=== PATIENT | female | born 1995 | race Caucasian/White ===

== ENCOUNTER 2020-11-04 08:51 | Outpatient (REF) | payer MEDICAID, SELFPAY ==
[2020-11-04 14:10] LABS: Abs Immature Grans 0.02 10^3/uL (0.0-0.06); Absolute Basophil Count 0.02 10^3/uL (0.0-0.2); Absolute Eosinophil Count 0.11 10^3/uL (0.0-0.7); Absolute Lymphocyte Count 1.05 10^3/uL (1.2-3.4); Absolute Monocyte Count 0.39 10^3/uL (0.1-0.8); Absolute Neutrophil Count 3.05 10^3/uL (1.2-6.7); Basophils % 0.4; Eosinophils % 2.4; HCT 42.1 % (36.0-46.0); Immature Grans % 0.4; Lymphocytes % 22.6; MCH 31.1 pg (27.0-33.0); MCHC 33.3 % (32.0-36.0); MCV 93.6 fL (80-95); MPV 10.6 fL (8.0-11.0); Monocytes % 8.4; Neutrophils % 65.8; Nucleated RBC 0 %; Platelet Count 142 10^3/uL (130-400); RDW 12.3 % (11.7-14.6); RDW-SD 42.3 fL; WBC 4.64 10^3/uL (4.4-10.8)
[2020-11-04 14:40] LABS: AST 13 U/L (15-37); Albumin 4.9 g/dL (3.4-5.0); Anion Gap 13.2 mmol/L (3-11); BUN 12 mg/dL (7-18); Bilirubin, Total 0.7 mg/dL (0.2-1.0); CO2 25.8 mmol/L (21.0-32.0); CREATININE 0.8 mg/dL (0.55-1.02); Calcium 9.6 mg/dL (8.5-10.1); Chloride 105 mmol/L (98-107); Glucose 105 mg/dL (74-106); Potassium 3.6 mmol/L (3.5-5.1); Sodium 144 mmol/L (136-145); TSH (W/Ref FT4) 0.69 uIU/mL (0.36-3.74); Total Protein 7.6 g/dL (6.4-8.2)
[2020-11-04 14:51] LABS: ALT 23 U/L (14-59); Alkaline Phosphatase 71 U/L (46-116)
== END 2020-11-04 08:52 | disposition home or self-care (01) ==
LOC: NCHCN 08:51
PROVIDERS: PCP Nurse Practitioner Family; Visit Provider Nurse Practitioner Community Health
DX: R63.6 Underweight (principal)
CPT/HCPCS: 80053; 84443; 85025

== ENCOUNTER 2020-11-23 18:30 | Outpatient (REF) | payer MEDICAID, SELFPAY ==
[2020-11-23 22:04] LABS: Ferritin 26 ng/mL (8-252); Vitamin B12 403 pg/mL (193-986)
== END 2020-11-23 18:31 | disposition home or self-care (01) ==
LOC: NCHCN 18:30
PROVIDERS: PCP Nurse Practitioner Family; Visit Provider Nurse Practitioner Community Health
DX: G62.9 Polyneuropathy, unspecified (principal)
CPT/HCPCS: 82607; 82728

== ENCOUNTER 2020-12-09 13:42 | Outpatient (REF) | payer MEDICAID, SELFPAY ==
[2020-12-10 01:29] LABS: Vitamin D 25 Total 24.9 ng/mL (30-100)
== END 2020-12-09 13:43 | disposition home or self-care (01) ==
LOC: NCHCN 13:42
PROVIDERS: PCP Nurse Practitioner Family; Visit Provider Nurse Practitioner Community Health
DX: G60.9 Hereditary and idiopathic neuropathy, unspecified (principal)
CPT/HCPCS: 82306

== ENCOUNTER 2021-04-13 10:33 | Outpatient (REF) | payer MEDICAID, SELFPAY ==
[2021-04-14 14:25] LABS: COVID-19 RT-PCR UVMMC Result Negative (Negative)
== END 2021-04-13 10:34 | disposition home or self-care (01) ==
LOC: NCHCN 10:33
PROVIDERS: PCP Nurse Practitioner Family; Visit Provider Nurse Practitioner Family
DX: Z20.822 Contact with and (suspected) exposure to COVID-19 (principal); J31.0 Chronic rhinitis
CPT/HCPCS: U0003

== ENCOUNTER 2023-01-06 12:32 | Outpatient (REF) | payer MEDICAID, SELFPAY ==
[2023-01-06 21:23] LABS: HCT 40.6 % (36.0-46.0); HGB 13.8 g/dL (11.2-15.7); MCH 31.8 pg (27.0-33.0); MCV 94 fL (80-95); MPV 10.6 fL (8.0-11.0); Platelet Count 182 10^3/uL (130-400); RBC 4.34 10^6/uL (3.93-5.22); RDW 12.5 % (11.7-14.6); RDW-SD 43.6 fL; WBC 7.13 10^3/uL (4.4-10.8)
[2023-01-06 21:46] LABS: Hemoglobin A1C 5.2 % (<5.7)
[2023-01-06 21:54] LABS: ALT 26 U/L (14-59); AST 16 U/L (15-37); Albumin 4.8 g/dL (3.4-5.0); Alkaline Phosphatase 65 U/L (46-116); Anion Gap 8.7 mmol/L (3-11); BUN 9 mg/dL (7-18); Bilirubin, Total 0.8 mg/dL (0.2-1.0); CO2 28.3 mmol/L (21.0-32.0); CREATININE 0.9 mg/dL (0.55-1.02); Calcium 9.5 mg/dL (8.5-10.1); Chloride 103 mmol/L (98-107); Estimated GFR 90.98 (mL/min/1.73m2); Glucose 88 mg/dL (74-106); Magnesium 2.3 mg/dL (1.8-2.4); Potassium 3.4 mmol/L (3.5-5.1); Sodium 140 mmol/L (136-145); TSH (W/Ref FT4) 0.82 uIU/mL (0.36-3.74); Total Protein 7.7 g/dL (6.4-8.2)
== END 2023-01-06 12:33 | disposition home or self-care (01) ==
LOC: NCHCN 12:32
PROVIDERS: PCP Nurse Practitioner Family; Visit Provider Family Medicine
DX: R10.9 Unspecified abdominal pain (principal); R11.0 Nausea; L65.9 Nonscarring hair loss, unspecified; L60.3 Nail dystrophy; E55.9 Vitamin D deficiency, unspecified; K59.09 Other constipation; R35.89 Other polyuria
CPT/HCPCS: 80053; 82306; 85027; 83036; 83735; 84443

== ENCOUNTER 2023-09-19 13:04 | Outpatient (REF) | payer MEDICAID, SELFPAY ==
--- NOTE | 2023-09-19 11:45 | PAPFT_PTH ---
PATIENT: Kaylen Neff LOC: [facility]#:[id number] AGE/SX: 27/F ROOM: RE09/19/[address]: Arminda De : 1995 BED: DIS: 09/19/2023 SPEC #: [id number] RECD: 09/20/23 13:26 STATUS: ÁNGEL DIAZ #: [id number] DAISHA: 09/19/23 11:[address]: Arminda De DEPT: [facility] Cytology RECD BY: Alicja Arcos ENTERED: 09/20/23 13:26 SP TYPE: PAPFT OTHR DR: Maddy Nava Tissues: 1 - CX/ENDOCX FOR PAP SMEARS Procedures: PAP THIN PREP/[facility] Screening HPV DNA PROBE Comments: [id number] (CHLAMYDIA/GC)
[2023-09-21 15:08] LABS: Chlamydia Result Negative (Negative); GC Result Negative (Negative)
== END 2023-09-19 13:05 | disposition home or self-care (01) ==
LOC: NCHCN 13:04
PROVIDERS: PCP Nurse Practitioner Family; Visit Provider Nurse Practitioner Family
DX: Z00.00 Encounter for general adult medical examination without abnormal findings (principal)
CPT/HCPCS: 87491; 87591; 88142; 87624

== ENCOUNTER 2024-02-12 17:40 | Outpatient (REF) | payer SELFPAY ==
[2024-02-15 13:08] LABS: Bacterial Vaginosis (BV) Negative (Negative); Candida glabrata Negative (Negative); Candida species group Positive (Negative); Chlamydia Result Negative (Negative); GC Result Negative (Negative); Trichomonas vaginalis Negative (Negative)
== END 2024-02-12 17:41 | disposition home or self-care (01) ==
LOC: NCHCN 17:40
PROVIDERS: PCP Nurse Practitioner Family; Visit Provider Nurse Practitioner Family
DX: N76.0 Acute vaginitis (principal)
CPT/HCPCS: 81513; 87481; 87491; 87591; 87661